=== PATIENT | female | born 1970 | race Caucasian/White ===

== ENCOUNTER 2018-11-28 10:35 | Emergency (ER) | payer OTHER ==
[~2018-11-28] VITALS: Ht 162.6 cm; Wt 61.2 kg
[~2018-11-28 10:35] MED LIST: ASPIR 8181 MG PO; CARAFATE 1 GM TA1 GM PO; KEFLEX500 MG PO; NORCO 5-325 TA1 EACH PO; PREDNISONE 10 M10 MG PO; PREVACID 24HR15 MG PO; TORADOL 10 MG T10 MG PO; TRIAMCINOLONE A15 G1 TP; ULTRAM 50MG TAB50 MG PO; ZANTAC 150MG T150 MG PO
[2018-11-28 11:18] LABS: ABSOLUTE BASOPHILS 0.1 thou/uL (0.0-0.2); ABSOLUTE EOSINOPHILS 0.1 thou/uL (0.0-0.7); ABSOLUTE LYMPHOCYTES 2.2 thou/uL (0.8-5.3); ABSOLUTE MONOCYTES 0.4 thou/uL (0.0-1.2); ABSOLUTE NEUTROPHILS 6.8 thou/uL (1.6-8.1); BASOPHILS 0.7 %; EOSINOPHILS 1.1 %; HEMATOCRIT 37.5 % (37.0-47.0); HEMOGLOBIN 12.2 gm/dL (12.0-15.0); MCH 28.8 pg (26.0-34.0); MCHC 32.6 g/dL (28.0-37.0); MCV 88.5 fL (80.0-100.0); MONOCYTES 4.2 %; MPV 8.7 fl. (7.2-11.1); NUCLEATED RBCS 0 /100WBC; PLATELET COUNT* 304 thou/uL (150-400); RBC 4.24 mil/uL (4.20-5.00); RDW-CV 13.6 % (10.5-14.5); WBC 9.6 thou/uL (4.0-11.0)
[2018-11-28 11:22] LABS: ANION GAP 10 mmol/L (7-16); BUN 11 mg/dL (7-18); CALCIUM 9.2 mg/dL (8.5-10.1); CHLORIDE 102 mmol/L (98-107); CO2 29 mmol/L (21-32); CREATININE 0.8 mg/dL (0.6-1.3); GLUCOSE 121 mg/dL (70-99); SODIUM 141 mmol/L (136-145)
[2018-11-28 11:23] LABS: URINE BILIRUBIN NEGATIVE (Negative); URINE BLOOD NEGATIVE (Negative); URINE CLARITY CLEAR; URINE COLOR YELLOW; URINE GLUCOSE-RANDOM NEGATIVE (Negative); URINE KETONES NEGATIVE (Negative); URINE LEUKOCYTES-REFLEX NEGATIVE (Negative); URINE NITRITE-REFLEX NEGATIVE (Negative); URINE PROTEIN NEGATIVE (Negative); URINE UROBILINOGEN 0.2 E.U./dl (0.2-1.0)
[2018-11-28 11:32] LABS: ALBUMIN 4.1 g/dL (3.4-5.0); ALKALINE PHOSPHATASE 74 U/L (46-116); SGOT 12 U/L (15-37); SGPT 19 U/L (30-65); TOTAL BILIRUBIN 0.2 mg/dL (<0.1-1.0); TOTAL PROTEIN 7.6 g/dL (6.4-8.2); TROPONIN-I LEVEL <0.06 ng/mL (<0.06)
[2018-11-28] MEDS ORDERED: TORADOL 10 MG T10 MG PO (12:48)
[2018-11-28] MEDS ORDERED: PREDNISONE50 MG PO (12:48)
[2018-11-28 13:12] VITALS: BP 115/52
--- NOTE | 2018-11-28 14:20 | EKG ---
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 Machine: SU/MAXIMILIANO : [id number] Requested By: Alysa Leigh Order Number: [id number] MD: Leobardo Yu Measurements Intervals [place] Rate: 98 P: 61 [place]: 107 QRS: 61 QRSD: 82 T: 23 QT: 336 QTc: 430 Interpretive Statements Sinus rhythm Short [place] interval Borderline ST depression, diffuse leads Compared to ECG 03/18/2016 19:21:00 Short [place] interval now present ST (T wave) deviation now present Electronically Signed On 11-28-2018 14:19:53 CDT by Leobrado Yu [email or web address] <ELECTRONICALLY SIGNED> By: Leobardo Yu MD, [facility] 11/28/18 1419 1041 1041 Leobardo Yu MD, [facility] /EPI
== END 2018-11-28 13:13 | disposition home or self-care (01) ==
LOC: M.ERS 10:35
PROVIDERS: Personal Emergency Response Attendant
DX: G44.209 Tension-type headache, unspecified, not intractable (principal); K21.9 Gastro-esophageal reflux disease without esophagitis; F17.210 Nicotine dependence, cigarettes, uncomplicated; Z88.1 Allergy status to other antibiotic agents; Z88.0 Allergy status to penicillin; Z87.442 Personal history of urinary calculi; Z88.2 Allergy status to sulfonamides; Z91.041 Radiographic dye allergy status; Z88.8 Allergy status to other drugs, medicaments and biological substances